=== PATIENT | male | born 1955 | race Caucasian/White ===

== ENCOUNTER 2017-09-25 18:57 | Emergency (ER) | payer SELFPAY ==
[~2017-09-25] VITALS: Ht 170.2 cm; Wt 65.8 kg
[~2017-09-25 18:57] MED LIST: LITHIUM CARBON150 MG ORAL; LITHIUM CARBON300 MG ORAL
[2017-09-25 19:24] VITALS: BP 130/82
[2017-09-25] MEDS ORDERED: NKM (19:31)
[2017-09-25 19:38] VITALS: BP 124/80
--- NOTE | 2017-09-25 19:56 | Emergency Room Report ---
History of Present Illness General Chief Complaint: Wound Recheck/Suture Removal Source: Patient Present Illness [facility] The patient is a 61-year-old male with a psychiatric history presenting for leg pain. This was his chief complaint but now states he is not having any pain at all. He states that he just wants to be checked out. He denies any injury. He denies any other symptoms including rash, fever, chills, shortness of breath , chest pain, numbness or tingling. Allergies: Coded Allergies: No Known Allergies (Unverified , 09/25/17) Patient History Past Medical History: see triage record Pertinent Family History: none Reviewed Nursing Documentation: PMH: Agreed, PSxH: Agreed Nursing Documentation-PMH Past Medical History: No History, Except For Hx Asthma: Yes Review of Systems All Other Systems: negative except mentioned in HPI Physical Exam Vital Signs Date Time Temp Pulse Resp B/P (MAP) Pulse Ox O2 Delivery O2 Flow Rate FiO2 09/25/17 19:08 98.1 87 16 130/82 99 Room Air Sp02 EP Interpretation: reviewed, normal General Appearance: no apparent distress, alert, GCS 15, non-toxic Head: normocephalic, atraumatic Eyes: bilateral eye normal inspection, bilateral eye PERRL ENT: hearing grossly normal, normal pharynx, no angioedema, normal voice Gastrointestinal: normal bowel sounds, non tender, soft, non-distended, no guarding, no rebound Musculoskeletal: normal inspection, digits/nails normal, normal range of motion , no calf tenderness Neurologic: alert, oriented x3, responsive, motor strength/tone normal, sensory intact, speech normal Psychiatric: judgement/insight normal, memory normal, mood/affect normal, no suicidal/homicidal ideation Skin: normal color, no rash, warm/dry, well hydrated Medical Decision Making PA Attestation Dr. Anaya is my supervising physician. Patient management was discussed with my supervising physician Diagnostic Impression: Primary Impression: Foot pain, bilateral ER Course The patient is a 61-year-old male with a psychiatric history presenting for leg pain Ddx considered include but not limited to sprain/strain, fracture, contusion, schizophrenia, among others PE: NAD Musculoskeletal: Normal gait. Full active range of motion of the hips, knees, ankles, and toes. No ecchymosis. No edema. Sensation is intact. Skin is warm and dry The patient has declined any pain medication and states that he is ready to be discharged. He is discharged and will follow up with his primary doctor. ER precautions were given Last Vital Signs Date Time Temp Pulse Resp B/P (MAP) Pulse Ox O2 Delivery O2 Flow Rate FiO2 09/25/17 19:38 98.1 84 20 124/80 95 Room Air Status: improved Disposition: HOME, SELF-CARE Condition: Improved Patient Instructions: FABIENNE for Routine Care of Injuries Additional Instructions: I discussed my findings with the patient. All questions and concerns have been answered. Treatment and medication compliance have been addressed. I advised the patient that they need to follow up with PMD in 3-5 days. Return to ED if pain remains or worsens, numbness or tingling occurs, new rash is noticed, fever is noticed, or if needed for any reason. Patient verbalized understanding of discharge instructions. OLIVA OROSCO Sep 25, 2017 19:56
== END 2017-09-25 22:00 | disposition home or self-care (01) ==
LOC: EMR 21:37
DX: M79.672 Pain in left foot (principal); M79.671 Pain in right foot; J45.909 Unspecified asthma, uncomplicated
CPT/HCPCS: 99282

== ENCOUNTER 2018-01-09 13:37 | Emergency (ER) | payer SELFPAY ==
[~2018-01-09] VITALS: Ht 170.2 cm; Wt 68.0 kg
[~2018-01-09 13:37] MED LIST changes: +NKM
[2018-01-09] MEDS ORDERED: CALLUS REMOVER1 EACH TP (14:39)
[2018-01-09] MEDS ORDERED: CLOTRIMAZOLE15 GM TOPIC (14:39)
[2018-01-09 14:57] VITALS: BP 142/79
[2018-01-09 14:59] VITALS: BP 142/79
--- NOTE | 2018-01-09 17:13 | Emergency Room Report ---
History of Present Illness General Chief Complaint: Pain Source: Patient Present Illness HPI 62-year-old male presents ED for evaluation. Patient complaining of bilateral feet pain for weeks. States that he's been walking all day, all night. States his shoes are very old. States there callouses to his feet. Pain is throbbing , 5/10, nonradiating. Denies recent trauma. No other aggravating relieving factors. Denies any other associated symptoms Allergies: Coded Allergies: No Known Allergies (Unverified , 09/25/17) Patient History Past Medical History: asthma Past Surgical History: none Pertinent Family History: none Social History: Denies: smoking, alcohol use, drug use Immunizations: UTD Reviewed Nursing Documentation: PMH: Agreed, PSxH: Agreed Nursing Documentation-PMH Past Medical History: No Stated History Hx Asthma: Yes Review of Systems All Other Systems: negative except mentioned in HPI Physical Exam Vital Signs Date Time Temp Pulse Resp B/P (MAP) Pulse Ox O2 Delivery O2 Flow Rate FiO2 01/09/18 14:16 97.9 87 18 146/88 96 Room Air 97.9 Sp02 EP Interpretation: reviewed, normal General Appearance: no apparent distress, alert, GCS 15, non-toxic Head: normocephalic Eyes: bilateral eye normal inspection, bilateral eye PERRL ENT: normal ENT inspection Neck: normal inspection Respiratory: normal inspection Cardiovascular #1: normal inspection Gastrointestinal: normal inspection Rectal: deferred Genitourinary: no CVA tenderness Musculoskeletal: normal inspection, other - calluses to bilateral feet Neurologic: alert, oriented x3, responsive, motor strength/tone normal, sensory intact, speech normal Psychiatric: normal inspection Skin: normal inspection Lymphatic: normal inspection Medical Decision Making Diagnostic Impression: Primary Impression: Foot pain, bilateral ER Course Hospital Course 62-year-old M presents to ED complaining of bilateral foot pain Differential diagnoses include: Fracture, dislocation, sprain, contusion Clinical course Patient placed on stretcher. After initial history, physical exam reveals male in no acute distress. there are calluses to bialteral feet. no bruising. no TTP. discussed findings with patient. i will prescribe callus remover, lotrimin. patient given socks Diagnosis - bilateral foot pain Stable and discharged to home with prescription for callus remover, lotrimin. weight bear as tolerated. Followup with PMD. Return to ED if symptoms recur or worsen Last Vital Signs Date Time Temp Pulse Resp B/P (MAP) Pulse Ox O2 Delivery O2 Flow Rate FiO2 01/09/18 14:59 98.0 88 18 142/79 96 Room Air 98.0 Status: improved Disposition: HOME, SELF-CARE Condition: Stable Scripts Clotrimazole* (LOTRIMIN*) 15 Gm Cream..g. 1 APPLIC TOPIC TWICE A DAY, #15 GM Prov: LEIDY JEREZ M.D. 01/09/18 Salicylic Acid (CALLUS REMOVERS) 1 Each Adh..patch 1 EACH TP DAILY, #10 PATCH Prov: LEIDY JEREZ M.D. 01/09/18 Referrals: NOT CHOSEN [facility]/,REFERRING (PCP) Patient Instructions: Zaki (Hallux Valgus) LEIDY JEREZ M.D. Jan 09, 2018 17:13
== END 2018-01-09 14:59 | disposition home or self-care (01) ==
LOC: EMR 14:30
DX: M79.672 Pain in left foot (principal); M79.671 Pain in right foot; J45.909 Unspecified asthma, uncomplicated
CPT/HCPCS: 99283

== ENCOUNTER 2018-08-22 22:52 | Emergency (ER) | payer OTHER ==
[~2018-08-22] VITALS: Ht 172.7 cm; Wt 63.5 kg
[~2018-08-22 22:52] MED LIST changes: +CALLUS REMOVER1 EACH TP; +CLOTRIMAZOLE15 GM TOPIC
[2018-08-22] MEDS ORDERED: LITHIUM CARBON450 MG PO (23:09)
--- NOTE | 2018-08-22 23:09 | Emergency Room Report ---
History of Present Illness General Chief Complaint: Medication Refill Source: Patient Present Illness HPI Is a 52-year-old male with a history of schizoaffective disorder. He is here for refill on his lithium. He said he lost his prescription for about a week now. Denies any fever chills denies any nausea vomiting. No other injury. No suicidal thoughts or homicidal thought. No hallucination. Allergies: Coded Allergies: No Known Allergies (Unverified , 09/25/17) Patient History Past Medical History: see triage record, old chart reviewed, psych hx Past Surgical History: other Pertinent Family History: none Social History: Denies: smoking Immunizations: other Reviewed Nursing Documentation: PMH: Agreed; PSxH: Agreed Nursing Documentation-PMH Hx Asthma: Yes History Of Psychiatric Problem: Yes - bi polar, schizo affective Review of Systems Eye: Denies: eye pain, blurred vision ENT: Denies: ear pain, nose congestion, throat swelling Respiratory: Denies: cough, shortness of breath Cardiovascular: Denies: chest pain, palpitations Gastrointestinal: Denies: abdominal pain, diarrhea, nausea, vomiting Musculoskeletal: Denies: back pain, joint pain Skin: Denies: rash Neurological: Denies: headache, numbness Endocrine: Denies: increased thirst, increased urine Hematologic/Lymphatic: Denies: easy bruising All Other Systems: negative except mentioned in HPI Physical Exam Vital Signs Date Time Temp Pulse Resp B/P (MAP) Pulse Ox O2 Delivery O2 Flow Rate FiO2 08/22/18 22:56 98.8 98 18 121/87 96 Room Air 98.8 vitals normal Sp02 EP Interpretation: reviewed, normal General Appearance: well appearing, no apparent distress, alert Head: normocephalic, atraumatic Eyes: bilateral eye PERRL, bilateral eye EOMI ENT: hearing grossly normal, normal pharynx Neck: full range of motion, supple, no meningismus Respiratory: chest non-tender, lungs clear, normal breath sounds Cardiovascular #1: regular rate, rhythm, no murmur Gastrointestinal: normal bowel sounds, non tender, no mass, no organomegaly, no bruit, non-distended Musculoskeletal: back normal, gait/station normal, normal range of motion Psychiatric: mood/affect normal Skin: warm/dry Medical Decision Making Diagnostic Impression: Primary Impression: Encounter for medication refill ER Course Patient here for refill on his lithium. We'll discharge home. No criteria for 5150. Last Vital Signs Date Time Temp Pulse Resp B/P (MAP) Pulse Ox O2 Delivery O2 Flow Rate FiO2 08/22/18 22:56 98.8 98 18 121/87 96 Room Air 98.8 Status: unchanged Disposition: HOME, SELF-CARE Condition: Stable Scripts [place] Carbonate (LITHIUM CARBONATE) 450 Mg Tablet.er 450 MG PO BID, #60 TAB Prov: Augusto Bautista MD 08/22/18 Patient Instructions: Medicine Refill at the Emergency Department Additional Instructions: Follow-up with your doctor in 7 days. Return if symptom worsen. Augusto Bautista MD Aug 22, 2018 23:09
[2018-08-22 23:10] VITALS: BP 121/87
[2018-08-22 23:19] VITALS: BP 121/87
== END 2018-08-22 23:19 | disposition home or self-care (01) ==
LOC: EMR 23:10
DX: Z76.0 Encounter for issue of repeat prescription (principal); F25.9 Schizoaffective disorder, unspecified; F31.9 Bipolar disorder, unspecified
CPT/HCPCS: 99282

== ENCOUNTER 2019-04-03 05:40 | Emergency (ER) | payer OTHER ==
[~2019-04-03] VITALS: Ht 172.7 cm; Wt 68.0 kg
[~2019-04-03 05:40] MED LIST changes: +LITHIUM CARBON450 MG PO
[2019-04-03 06:00] VITALS: BP 122/77
--- NOTE | 2019-04-03 06:00 | NUR ---
ED Nurse Note: Pt c/o his L shoulder sore for 2 months. Pt also wants his meds refill. Pt is bipolar and schizo, AO x 3~4 times, VSS, on room air no distress. MADELINE seen Pt at bedside.
[2019-04-03] MEDS ORDERED: LITHIUM CARBON150 MG ORAL (06:14)
--- NOTE | 2019-04-03 06:42 | NUR ---
Homeless Discharge: Patient is being discharged from medical care. Awake, alert and oriented x3. After care instructions, including referral to community resources were given. Patient verbalized understanding of After care instructions; at this time patient does not request medications, equipment or placement. Patient signed patient consent in the medical record for patient destination upon discharge. All medical devices such as IV and ID band were removed. Patient ambulated out with all personal belongings with steady gait.
--- NOTE | 2019-04-03 06:42 | NUR ---
Note meli in EDM - 04/03/19 at 0642 by CEM ER DISCHARGE NOTE: Patient is cleared to be discharged per ERMD, pt is aox4, on room air, with stable vital signs. pt was given dc and prescription instructions, pt was able to verbalize understanding, pt id band removed without complications. pt is able to ambulate with steady gait. pt took all belongings.
[2019-04-03 06:45] VITALS: BP 122/77
--- NOTE | 2019-04-03 07:13 | Emergency Room Report ---
History of Present Illness General Chief Complaint: Medication Refill Source: Patient Present Illness HPI Patient has a history of schizophrenia. Patient has taken lithium in the past. Patient states that he has not taken lithium in months and he needs a medication refill. He states that he would like to start on a low dose. He denies any suicidal homicidal ideations. Denies any auditory visual hallucinations. But he does feel restless. Symptoms noted to be mild. No other modifying factors. No other associated signs and symptoms. No other complaints were noted. Allergies: Coded Allergies: No Known Allergies (Unverified , 09/25/17) Patient History Past Medical History: psych hx Past Surgical History: none Pertinent Family History: none Social History: Reports: smoking, alcohol use, drug use - Marijuana use Reviewed Nursing Documentation: PMH: Agreed; PSxH: Agreed Nursing Documentation-PMH Hx Asthma: Yes History Of Psychiatric Problem: Yes - ETOH Review of Systems All Other Systems: negative except mentioned in HPI Physical Exam Vital Signs Date Time Temp Pulse Resp B/P (MAP) Pulse Ox O2 Delivery O2 Flow Rate FiO2 04/03/19 05:56 98.2 81 18 98 Room Air 04/03/19 06:00 122/77 Sp02 EP Interpretation: reviewed, normal General Appearance: normal inspection, well appearing, no apparent distress, alert Head: atraumatic Eyes: bilateral eye normal inspection ENT: normal ENT inspection, hearing grossly normal, normal voice Neck: normal inspection, full range of motion, supple, no bony tend Respiratory: normal inspection, lungs clear, normal breath sounds, no respiratory distress, no retraction, no wheezing Cardiovascular #1: regular rate, rhythm, no edema Gastrointestinal: normal inspection, normal bowel sounds, non tender, soft, no guarding, no hernia Genitourinary: no CVA tenderness Musculoskeletal: normal inspection, back normal, normal range of motion Neurologic: normal inspection, alert, responsive, speech normal Psychiatric: normal inspection, judgement/insight normal, mood/affect normal Skin: normal inspection, normal color, no rash Medical Decision Making Diagnostic Impression: Primary Impression: Schizophrenia Additional Impressions: Encounter for medication refill Bipolar affective disorder ER Course Patient presents to the emergency department today for medication refill. Patient has a history of schizophrenia. Differential considerations include medication refill, worsening schizophrenia, drug abuse. Patient's exam is fairly benign. I felt that was reasonable to refill patient's prescriptions. We will give a low-dose two-week supply recommend close outpatient follow-up. Patient states that he does have a mental clinic that he follows up with. Patient is advised to follow up with primary doctor in 2-3 days and return the emergency room for any worsening symptoms and as needed. Last Vital Signs Date Time Temp Pulse Resp B/P (MAP) Pulse Ox O2 Delivery O2 Flow Rate FiO2 04/03/19 06:45 98.0 86 18 122/77 98 Room Air Status: improved Disposition: HOME, SELF-CARE Condition: Stable Scripts [place] Carbonate* (LITHIUM*) 150 Mg Capsule 150 MG ORAL EVERY 8 HOURS for 14 Days, CAP 0 Refills Prov: Kailash Mims MD 04/03/19 Referrals: [facility]REFERR[facility] (PCP) Patient Instructions: Medicine Refill at the Emergency Department, Schizophrenia Kailash Mims MD April 03, 2019 07:13
== END 2019-04-03 06:47 | disposition home or self-care (01) ==
LOC: EMR 06:09
DX: F20.9 Schizophrenia, unspecified (principal); F31.9 Bipolar disorder, unspecified; Z76.0 Encounter for issue of repeat prescription; F17.200 Nicotine dependence, unspecified, uncomplicated; F12.90 Cannabis use, unspecified, uncomplicated
CPT/HCPCS: 99282

== ENCOUNTER 2019-12-10 00:57 | Emergency (ER) | payer OTHER ==
[~2019-12-10] VITALS: Ht 175.3 cm; Wt 65.8 kg
--- NOTE | 2019-12-10 01:13 | NUR ---
not in waiting room
[2019-12-10] MEDS ORDERED: Albuterol ud Inhalation HHN ONE (02:00)
[2019-12-10] MEDS ORDERED: ALBUTEROL SULF8.5 GM INH (02:04)
[2019-12-10] MEDS ORDERED: LITHIUM CARBON150 MG ORAL (02:04)
[2019-12-10] MEDS ORDERED: PREDNISONE20 MG ORAL (02:04)
--- NOTE | 2019-12-10 02:05 | Emergency Room Report ---
History of Present Illness General Chief Complaint: Medication Refill Source: Patient Present Illness HPI This a 54-year-old male with a psychiatric history. He presents with chief complaint of needing refill on his lithium. He has been out for a month. Denies any fever chills but no nausea no vomiting. No increase hallucination. No suicidal thoughts homicidal thought. Denies any other complaint. Allergies: Coded Allergies: No Known Allergies (Unverified , 09/25/17) Patient History Past Medical History: see triage record, old chart reviewed, psych hx Family History: none Social History: tobacco use Immunizations: other Reviewed Nursing Documentation: PMH: Agreed; PSxH: Agreed Nursing Documentation-PMH Hx Asthma: Yes Review of Systems ENT: Denies: sore throat Cardiovascular: Denies: chest pain, palpitations Gastrointestinal/Abdominal: Denies: nausea, vomiting, diarrhea Musculoskeletal: Denies: back problems Skin: Denies: rash Neurological: Denies: HAMEED, seizures All Other Systems: negative except mentioned in HPI Physical Exam Vital Signs Date Time Temp Pulse Resp B/P (MAP) Pulse Ox O2 Delivery O2 Flow Rate FiO2 12/10/19 01:26 97.5 88 18 132/76 (94) 97 Room Air Vitals normal Sp02 EP Interpretation: reviewed, normal General Appearance: alert/responsive, no apparent distress, non-toxic Head: normocephalic, atraumatic Eyes: PERRL, EOMI ENT: oropharynx normal Neck: supple/symm/no masses Respiratory: effort normal, no rhonchi, wheezing Cardiovascular: no murmur, gallop, rub Gastrointestinal: non-tender, no mass, non-distended, no rebound/guarding, normal bowel sounds Musculoskeletal: gait & station normal Neurologic: oriented x3, sensory intact, motor strength/tone normal Skin: no rash, normal palpation Medical Decision Making Diagnostic Impression: Primary Impression: Encounter for medication refill Additional Impression: COPD with exacerbation ER Course Patient here for refill on his lithium. Noted that he is wheezing. He still smoking. He does not complain of shortness of breath. He wanted given breathing treatment and steroid but he refused. He said he is out of his inhaler. Will discharge home with this prescription. No criteria for 5150. Last Vital Signs Date Time Temp Pulse Resp B/P (MAP) Pulse Ox O2 Delivery O2 Flow Rate FiO2 12/10/19 01:26 97.5 88 18 132/76 (94) 97 Room Air Status: unchanged Disposition: HOME, SELF-CARE Condition: Stable Scripts [place] Carbonate* (LITHIUM*) 150 Mg Capsule 150 MG ORAL EVERY 8 HOURS, #30 CAP 0 Refills Prov: Augusto Bautista MD 12/10/19 Prednisone* (PREDNISONE*) 20 Mg Tablet 40 MG ORAL DAILY, #10 TAB Prov: Augusto Bautista MD 12/10/19 Albuterol Sulfate* (ALBUTEROL SULFATE MDI*) 8.5 Gm Hfa.aer.ad 2 PUFF INH Q4H PRN for cough/wheezing, #1 EA 0 Refills Prov: Augusto Bautista MD 12/10/19 Patient Instructions: Medicine Refill at the Emergency Department Additional Instructions: Stop smoking. Follow-up with your doctor in 7 days. Return if worse. Auugsto Bautista MD Dec 10, 2019 02:05
--- NOTE | 2019-12-10 02:09 | NUR ---
ER Nurse Note: Pt refused all meds prescribed by MD. CORREA aware. Pt calm and asleep. All safety measures met; will continue to montior.
[2019-12-10 02:16] VITALS: BP 132/76
--- NOTE | 2019-12-10 02:18 | NUR ---
ER DISCHARGE NOTE: All orders completed per ER MD orders. Patient is cleared to be discharged per ER MD. Discharge instructions given [facility] repeat verbalization by pt. Emphazied to follow up [facility] primary care physcian within 3-5 days. Pt is aox4, on room air, with stable vital signs, no signs of distress. ID band removed. Pt is able to ambulate with steady gait. Pt took all belongings.
== END 2019-12-10 02:18 | disposition home or self-care (01) ==
LOC: EMR 01:30
DX: J44.1 Chronic obstructive pulmonary disease with (acute) exacerbation (principal); Z76.0 Encounter for issue of repeat prescription; F17.200 Nicotine dependence, unspecified, uncomplicated
CPT/HCPCS: 99282

== ENCOUNTER 2020-05-17 03:42 | Emergency (ER) | payer MEDICAID, OTHER ==
[~2020-05-17] VITALS: Ht 172.7 cm; Wt 72.6 kg
[~2020-05-17 03:42] MED LIST changes: +ALBUTEROL SULF8.5 GM INH; +PREDNISONE20 MG ORAL
[2020-05-17] MEDS ORDERED: LITHIUM CARBON150 MG ORAL (04:06)
--- NOTE | 2020-05-17 04:06 | Emergency Room Report ---
History of Present Illness General Chief Complaint: Medication Refill Source: Patient Present Illness HPI This a 54-year-old male with a history of schizophrenia. He is here for refill of his medication. Patient said that he is out of his lithium. Denies any other complaint. No suicidal thoughts homicidal thought. Did not tell me how long he has been out of his medication. He is been here for the same thing multiple times. 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 Patient History Past Medical History: see triage record, old chart reviewed, psych hx Past Surgical History: none Pertinent Family History: none Social History: Reports: smoking Immunizations: other Reviewed Nursing Documentation: PMH: Agreed; PSxH: Agreed Nursing Documentation-PMH Hx Asthma: Yes History Of Psychiatric Problem: Yes - Bipolar Review of Systems Eye: Denies: eye pain, blurred vision ENT: Denies: ear pain, nose congestion, throat swelling Respiratory: Denies: cough, shortness of breath Cardiovascular: Denies: chest pain, palpitations Gastrointestinal: Denies: abdominal pain, diarrhea, nausea, vomiting Musculoskeletal: Denies: back pain, joint pain Skin: Denies: rash Neurological: Denies: headache, numbness Endocrine: Denies: increased thirst, increased urine Hematologic/Lymphatic: Denies: easy bruising All Other Systems: negative except mentioned in HPI Physical Exam Vital Signs Date Time Temp Pulse Resp B/P (MAP) Pulse Ox O2 Delivery O2 Flow Rate FiO2 05/17/20 03:47 98.4 98 18 127/75 (92) 98 Room Air Vitals normal Sp02 EP Interpretation: reviewed, normal General Appearance: well appearing, no apparent distress, alert Head: normocephalic, atraumatic Eyes: bilateral eye PERRL, bilateral eye EOMI ENT: hearing grossly normal, normal pharynx Neck: full range of motion, supple, no meningismus Respiratory: chest non-tender, lungs clear, normal breath sounds Cardiovascular #1: regular rate, rhythm, no murmur Gastrointestinal: normal bowel sounds, non tender, no mass, no organomegaly, no bruit, non-distended Musculoskeletal: back normal, normal range of motion, gait/station normal Psychiatric: other - Flat affect Medical Decision Making Diagnostic Impression: Primary Impression: Encounter for medication refill ER Course Patient is here for refills on his medication. No criteria for 5150. Last Vital Signs Date Time Temp Pulse Resp B/P (MAP) Pulse Ox O2 Delivery O2 Flow Rate FiO2 05/17/20 03:47 98.4 98 18 127/75 (92) 98 Room Air Status: unchanged Disposition: HOME, SELF-CARE Condition: Stable Scripts [place] Carbonate* (LITHIUM*) 150 Mg Capsule 150 MG ORAL EVERY 8 HOURS, #90 CAP 0 Refills Prov: Augusto Bautista MD 05/17/20 Patient Instructions: Medicine Refill at the Emergency Department Additional Instructions: Follow-up with your doctor in 7 days. Return if worse. Augusto Bautista MD May 17, 2020 04:06
[2020-05-17 04:10] VITALS: BP 127/75
--- NOTE | 2020-05-17 04:10 | NUR ---
ED Nurse Note: ER DISCHARGE NOTE: Patient is cleared to be discharged per ERMD, pt is aox4, on room air, with stable vital signs. pt was given dc and prescription instructions, pt was able to verbalize understanding, pt id band removed without complications. pt is able to ambulate with steady gait. pt took all belongings. pt seen by and given med refill. no other complaints.
== END 2020-05-17 04:10 | disposition home or self-care (01) ==
LOC: EMR 04:07
DX: Z76.0 Encounter for issue of repeat prescription (principal); F20.9 Schizophrenia, unspecified; F17.200 Nicotine dependence, unspecified, uncomplicated; F31.9 Bipolar disorder, unspecified
CPT/HCPCS: 99282